=== PATIENT | female | born 1960 | race Caucasian/White ===

== ENCOUNTER 2016-05-21 19:10 | Emergency (ER) | payer OTHER ==
[2016-05-21] MEDS ORDERED: ALBUTEROL NEB 2.5 MG/3 ML INH STA (20:18)
[2016-05-21] MEDS ORDERED: ALBUTEROL 8 GM INHALER INH ONE (20:27)
[2016-05-21] MEDS ORDERED: ALBUTEROL NEB 2.5 MG/3 ML INH ONE (20:27)
[2016-05-21] MEDS ORDERED: predniSONE 20 MG TABLET PO STA (21:17)
[2016-05-21] MEDS ORDERED: predniSONE 20 MG TABLET ONE (21:31)
[2016-05-21] MEDS ORDERED: BENZONATATE 100 MG CAPSULE PO STA (21:44)
[2016-05-21] MEDS ORDERED: BENZONATATE 100 MG CAPSULE PO ONE (21:45)
== END 2016-05-21 21:55 | disposition home or self-care (01) ==
DX: J40 Bronchitis, not specified as acute or chronic (principal); I10 Essential (primary) hypertension; E03.9 Hypothyroidism, unspecified
CPT/HCPCS: 71020; 94640; 99283; 99284; A9270; J7512; J7613

== ENCOUNTER 2019-10-23 09:53 | Outpatient (CLI) | payer OTHER | END 2019-10-23 09:54 | disposition home or self-care (01) | LOC: COV 09:53 | PROVIDERS: ATTEND Family Medicine | DX: R05 Cough (principal); J02.9 Acute pharyngitis, unspecified; R09.81 Nasal congestion; R11.2 Nausea with vomiting, unspecified; R68.83 Chills (without fever); Z20.828 Contact with and (suspected) exposure to other viral communicable diseases ==